=== PATIENT | female | born 1965 | race Caucasian/White ===

== ENCOUNTER 2023-04-21 20:22 | Inpatient (IN) | payer BC, SELFPAY ==
--- OUTSIDE RECORDS SUMMARY | 2023-04-21 20:25 | XMS REPORT | Continuity of Care Document ---
:1965 Author Organization [facility] t Address [address] [place] [address] [place] [id number] Care Team Providers Name Role Phone Estefanía Brito Primary Care Physician [phone] Problems This patient has no known problems. Allergies, Adverse Reactions, Alerts This patient has no known allergies or adverse reactions. Medications Ordered Filled Start Stop Current Ordering Indication Dosage Frequency Signature Comments Components Source Medication Medication Date Date Medication? Clinician (SIG) Name Name TAKE 2021-10 No TABLET BY 2-05 MOUTH ONCE 00:00: DAILY 00 TAKE 1 2021-10 No TABLET BY 1-15 MOUTH ONCE 00:00: DAILY 00 Vital Signs Vital Name Observation Time Observation Value Comments Source BP Diastolic 2022-09-27 14:40:00 84 mm[Hg] Weight Measured 2022-09-27 14:40:00 142.00 pounds Height Measured 2022-09-27 14:40:00 64.00 inches Body Temperature 2022-09-27 14:40:00 98.70 degrees Heart Rate 2022-09-27 14:40:00 93.00 /min Respiratory Rate 2022-09-27 14:40:00 18.00 /min BP Systolic 2022-09-27 14:40:00 154 mm[Hg] BP Systolic 2022-09-13 13:31:00 164 mm[Hg] BP Diastolic 2022-09-13 13:31:00 93 mm[Hg] Weight Measured 2022-09-13 13:31:00 147.80 pounds Height Measured 2022-09-13 13:31:00 64.00 inches Body Temperature 2022-09-13 13:31:00 98.60 degrees Heart Rate 2022-09-13 13:31:00 68.00 /min Respiratory Rate 2022-09-13 13:31:00 18.00 /min Procedures This patient has no known procedures. Plan of Care Planned Activity Planned Date Details Comments Source Goal Plan of Care Note [code = 40421-8] Goal Plan of Care Note [code = 60711-7] Goal Plan of Care Note [code = 46649-0] Goal Plan of Care Note [code = 77710-5] Goal Plan of Care Note [code = 14499-2] Goal Plan of Care Note [code = 20756-2] Encounters Start End Encounter Admission Attending Care Care Encounter Source Date/Time Date/Time Type Type Clinicians Facility Department ID 2023-01-26 2023-01-26 Outpatient SFA SFA Carlos 14:21:47 14:21:47 [id number] [facility] 2022-10-28 2022-10-28 Outpatient SFA SFA Carlos 13:46:48 13:46:48 [id number] [facility] 2022-09-27 2022-09-27 Outpatient SFA SFA Carlos 14:21:07 14:21:07 [id number] [facility] 2022-09-27 2022-09-27 Outpatient [id number] 00:00:00 00:00:00 Visit [id number] Results Test Description Test Time Test Comments Results Result Comments Source COMPREHENSIVE METABOLIC PANEL 2023-01-27 03:49:43 Test Item Value Reference Range Interpretation Comme nts GLUCOSE (test code = 2217) 92 MG/DL 70-99 BUN (test code = 2208) 16 MG/DL 6-20 CREATININE (test code = 0.56 MG/DL 0.60-1.30 L 2213) eGFR (2020 CKD-EPI) (test 106 ML/MIN/1.73 >60 code = 64120) CALC BUN/CREAT (test code = 29 RATIO 6-28 H 2234) SODIUM (test code = 2231) 133 MEQ/L 133-146 POTASSIUM (test code = 4.2 MEQ/L 3.5-5.4 2227) CHLORIDE (test code = 221) 93 MEQ/L 95-107 L CARBON DIOXIDE (test code = 27 MEQ/L 19-31 2205) CALCIUM (test code = 220) 9.8 MG/DL 8.5-10.5 PROTEIN, TOTAL (test code = 7.1 G/DL 6.1-8.3 2228) ALBUMIN (test code = 2201) 4.7 G/DL 3.5-5.2 CALC GLOBULIN (test code = 2.4 G/DL 1.9-3.7 2239) CALC A/G RATIO (test code = 2.0 RATIO 1.0-2.6 2233) BILIRUBIN, TOTAL (test code 0.3 MG/DL See_Comment [Automated message] The = 2206) system which ge nerated this result transmit christi reference range: <=1.2. T he reference range was not u sed to interpret this result as normal/abnormal . ALKALINE PHOSPHATASE (test 135 U/L 40-136 code = 220) AST (test code = 2218) 25 U/L 9-40 ALT (test code = 2219) 19 U/L 5-40 [facility] has important pathology staff changes effective 12/22. New pathology s taff will provide uninter rupted, excellent patie nt care and clinical consul tation. See URL: [email or web address]. UNLESS OTHE RWISE INDICATED, ALL TESTING PERFORMED AT [facility] [address] [place] [address] LABORATOR Y DIRECTOR: JOLYNN ALMEIDA M.D. IA NUMBER [id number] CAP ACCREDITATION N O. [id number] COMPREHENSIVE METABOLIC [id number] 03:29:45 Test Item Value Reference Range Interpretation Comments GLUCOSE (test code = 92 MG/DL 70-99 2216) BUN (test code = 16 MG/DL 6-20 2207) CREATININE (test 0.73 MG/DL 0.60-1.30 code = 2213) eGFR (2020 CKD-EPI) 96 ML/MIN/1.73 >60 (test code = 25399) CALC BUN/CREAT (test 22 RATIO 6-28 code = 223) SODIUM (test code = 131 MEQ/L 133-146 L 2230) POTASSIUM (test code 4.4 MEQ/L 3.5-5.4 = 2228) CHLORIDE (test code 91 MEQ/L 95-107 L = 2215) CARBON DIOXIDE (test 26 MEQ/L 19-31 code = 2206) CALCIUM (test code = 10.3 MG/DL 8.5-10.5 2208) PROTEIN, TOTAL (test 7.2 G/DL 6.1-8.3 code = 2229) ALBUMIN (test code = 4.8 G/DL 3.5-5.2 2200) CALC GLOBULIN (test 2.4 G/DL 1.9-3.7 code = 2240) CALC A/G RATIO (test 2.0 RATIO 1.0-2.6 code = 2234) BILIRUBIN, TOTAL 0.6 MG/DL See_Comment [Automated message] (test code = 220) The syste m which generated this result transmit christi reference range : <=1.2. The refe rence range was not u sed to interpret th is result as normal/abnormal . ALKALINE PHOSPHATASE 113 U/L 40-136 (test code = 220) AST (test code = 25 U/L 9-40 2217) ALT (test code = 15 U/L 5-40 2218) LIPID [id number] 03:29:45 Test Item Value Reference Range Interpretation Comments CHOLESTEROL (test 227 MG/DL <200 H code = 2210) TRIGLYCERIDES (test 55 MG/DL <150 code = 2232) HDL CHOLESTEROL (test 127 MG/DL >39 code = 2220) CALC LDL CHOL (test 86 MG/DL <100 NOTE: C ALCULATED LDL code = 2237) IS BASED ON GORGE-DE SANTIAGO METHOD WHICHINCLUDES ADJUSTABLE TRIGLYCERIDE:VL DL CHOLESTEROL RAT IO.THIS FACTOR VARIES B Y MEASURED TRIGLY CERIDE AND NON-HDLCHOL ESTEROL CONCENTRATIONS WITH INCREASED CALCU LATED LDL SEENIN HIGH ER TRIGLYCERIDE OR LOWER NON-HDL SPECIME NS. FOR MOREINFORMATION , SEE CLIENT ANNOUNCE MENT AT [email or web address] [email or web address] LDL/HDL 0.68 RATIO <3.22 UNLESS O THERWISE (test code = 2238) INDICATED , ALL TESTING PERFORMED [facility], [place]. [address] [place] [address] [facility] DIRECTOR: Jenna PRO NUMBER [id number] [facility] ACCREDITATION N O. [id number] COMPREHENSIVE METABOLIC [id number] 00:00:00 Test Item Value Reference Range Interpretation Comments GLUCOSE (test code = 2217) 92 MG/DL BUN (test code = 2208) 16 MG/DL CREATININE (test code = 2214) 0.73 MG/DL eGFR (2020 CKD-EPI) (test code 96 ML/MIN/1.73 = 45164) CALC BUN/CREAT (test code = 22 RATIO 2235) SODIUM (test code = 2231) 131 MEQ/L POTASSIUM (test code = 2228) 4.4 MEQ/L CHLORIDE (test code = 2215) 91 MEQ/L CARBON DIOXIDE (test code = 26 MEQ/L 2205) CALCIUM (test code = 2209) 10.3 MG/DL PROTEIN, TOTAL (test code = 7.2 G/DL 2228) ALBUMIN (test code = 2201) 4.8 G/DL CALC GLOBULIN (test code = 2.4 G/DL 224) CALC A/G RATIO (test code = 2.0 RATIO 4) BILIRUBIN, TOTAL (test code = 0.6 MG/DL 2206) ALKALINE PHOSPHATASE (test 113 U/L code = 2204) AST (test code = 2218) 25 U/L ALT (test code = 2219) 15 U/L COMPREHENSIVE METABOLIC [id number] 00:00:00 Test Item Value Reference Range Interpretation Comments GLUCOSE (test code = 2217) 92 MG/DL BUN (test code = 2208) 16 MG/DL CREATININE (test code = 2214) 0.73 MG/DL eGFR (2020 CKD-EPI) (test code 96 ML/MIN/1.73 = 74749) CALC BUN/CREAT (test code = 22 RATIO 2235) SODIUM (test code = 2231) 131 MEQ/L POTASSIUM (test code = 2228) 4.4 MEQ/L CHLORIDE (test code = 2215) 91 MEQ/L CARBON DIOXIDE (test code = 26 MEQ/L 220) CALCIUM (test code = 2209) 10.3 MG/DL PROTEIN, TOTAL (test code = 7.2 G/DL 2228) ALBUMIN (test code = 2201) 4.8 G/DL CALC GLOBULIN (test code = 2.4 G/DL 2240) CALC A/G RATIO (test code = 2.0 RATIO 2234) BILIRUBIN, TOTAL (test code = 0.6 MG/DL 2206) ALKALINE PHOSPHATASE (test 113 U/L code = 2204) AST (test code = 2218) 25 U/L ALT (test code = 2219) 15 U/L LIPID [id number] 00:00:00 Test Item Value Reference Range Interpretation Comments CHOLESTEROL (test code = 2210) 227 MG/DL TRIGLYCERIDES (test code = 2232) 55 MG/DL HDL CHOLESTEROL (test code = 2220) 127 MG/DL CALC LDL CHOL (test code = 2237) 86 MG/DL RISK RATIO LDL/HDL (test code = 0.68 RATIO 2238) LIPID [id number] 00:00:00 Test Item Value Reference Range Interpretation Comments CHOLESTEROL (test code = 2210) 227 MG/DL TRIGLYCERIDES (test code = 2232) 55 MG/DL HDL CHOLESTEROL (test code = 2220) 127 MG/DL CALC LDL CHOL (test code = 2237) 86 MG/DL RISK RATIO LDL/HDL (test code = 0.68 RATIO 2238)
[2023-04-21] MEDS ORDERED: NA CHLORIDE 0.9% 1,000 ML ONE ×2 (21:00→21:45)
[2023-04-21 21:03] LABS: Absolute Lymphocytes (CBC) 0.9 K/uL (0.7-4.9); Hematocrit 29.9 % (36.0-45.0); Lymphocytes % 7.1 % (15.3-44.8); MCV 93.7 fL (80-100); MPV 7.7 fL (7.6-11.3); RBC Red Blood Cell Count 3.19 M/uL (3.86-4.86)
--- NOTE | 2023-04-21 21:23 | RAD REPORT ---
EXAM DESCRIPTION: Avi Single View04/21/2023 9:01 pm CLINICAL HISTORY: CHEST PAIN COMPARISON: No comparisons TECHNIQUE: Portable AP view of the chest. FINDINGS: The lungs are clear. No pneumothorax or effusion. The cardiomediastinal contours are unre markable. IMPRESSION: No acute cardiopulmonary process.
[2023-04-21 21:29] LABS: Albumin 3.1 g/dL (3.4-5.0); Bilirubin Total 0.4 mg/dL (0.2-1.0); Magnesium 1.7 mg/dL (1.6-2.4); Protein, Total 6.3 g/dL (6.4-8.2)
[2023-04-21 21:31] LABS: Potassium 2.3 mEq/L (3.5-5.1)
[2023-04-21] MEDS ORDERED: POTASSIUM CL SA 10 MEQ TAB PO ONE (21:45)
--- NOTE | 2023-04-21 22:54 | RAD REPORT ---
EXAM DESCRIPTION: CT - Chest For Pe Angio - 04/21/2023 10:26 pm CLINICAL HISTORY: CHEST PAIN COMPARISON: No comparisons TECHNIQUE: Thin axial CT images of the chest were obtained following administration of 70 mL Isovue 370 IV contrast. Multiplanar reconstructions, and maximum intensity projection reconstructions were g enerated and reviewed. Exam utilizes a protocol for optimal evaluation of pulmonary arterial tree. All CT scans are performed using dose optimization technique as appropriate and may include automated exposure control or mA/KV adjustment according to patient size. FINDINGS: Pulmonary arteries are normal. No emboli or other suspicious finding. No acute or signific ant aorta findings. No mass or infiltrate in the lung parenchyma. No pleural thickening or pleural effusion. No pneumotho rax. No abnormal mediastinal or hilar masses or lymphadenopathy seen. No chest wall mass or abnormal axill iary lymphadenopathy. Evaluation of the upper abdominal structures reveals an ovoid left adrenal mass measuring 3.2 x 2.3 c entimeter in greatest dimensions, demonstrating internal density of less than 10 Hounsfield units. IMPRESSION: No evidence of acute central pulmonary emboli. No other acute pulmonary process. 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
--- NOTE | 2023-04-21 23:13 | EDPHYS ---
Physician Documentation [facility] Name: Dorys Gómez Age: 57 yrs Sex: Female : 1965 Arrival Date: 04/21/2023 Time: 20:22 Bed 13 Private MD: ED Physician Elmer Maguire HPI: 04/21 23:08 This 57 yrs old Female presents to ER via Ambulatory with complaints of High Blood kb Pressure, Chest Pain, General Weakness. 23:08 The patient presents with generalized weakness. Onset: The symptoms/episode kb began/occurred today. Context: occurred at work. Modifying factors: The symptoms are alleviated by nothing, the symptoms are aggravated by nothing. Associated signs and symptoms: Pertinent positives: chest pain. Severity of symptoms: At their worst the symptoms were moderate in the emergency department the symptoms are unchanged. Patient's baseline: Neuro: alert and fully oriented, Motor: no deficits, Ambulation: walks without assistance, Speech: normal. The patient has not experienced similar symptoms in the past. The patient has not recently seen a physician. Pt reports weakness and "feeling off" today. States she thought it was her BP so she took an extra dose of her BP medication at 1730. States she is still feeling weak and like something is wrong. Also reports chest pain, shortness of breath, nausea and one episode of vomiting. Historical: - Allergies: 20:32 No Known Allergies; lg3 - PMHx: 20:32 Hypertensive disorder; lg3 - PSHx: 20:32 hand; Ligation of fallopian tube; lg3 - Immunization history:: Client reports receiving the 2nd dose of the Covid vaccine, Client reports receiving the 2nd dose of the Covid vaccine, pfizer. - Social history:: Smoking status: Patient reports the use of cigarette tobacco products, smokes one-half pack cigarettes per day. ROS: 23:11 Constitutional: Negative for fever, chills, and weight loss. kb 23:11 Cardiovascular: Positive for chest pain. 23:11 Respiratory: Positive for shortness of breath. 23:11 Abdomen/GI: Positive for nausea and vomiting, Negative for abdominal pain. 23:11 Neuro: Positive for weakness. 23:11 All other systems are negative. Exam: 23:11 Constitutional: This is a well developed, well nourished patient who is awake, alert, kb and in no acute distress. Head/Face: Normocephalic, atraumatic. ENT: Moist Mucous membranes Chest/axilla: Normal chest wall appearance and motion. Respiratory: Respirations even and unlabored. No increased work of breathing. Talking in full sentences Abdomen/GI: Soft, non-tender. No distention Skin: Warm, dry with normal turgor. Normal color. MS/ Extremity: Pulses equal, no cyanosis. Neurovascular intact. Full, normal range of motion. Neuro: Awake and alert, GCS 15, oriented to person, place, time, and situation. Moves all extremities. Normal gait. 23:11 Cardiovascular: Rate: normal, Rhythm: regular, Pulses: no pulse deficits are appreciated, Heart sounds: murmur. 23:11 ECG was reviewed by the Attending Physician. Vital Signs: 20:29 BP 94 / 61; Pulse 99; Resp 18 S; Temp 97.9(TE); Pulse Ox 99% on R/A; Weight 64.41 kg lg3 (R); Height 5 ft. 4 in. (R); Pain 7/10; 22:03 BP 111 / 64; Pulse 91; Resp 20; Pulse Ox 100% on R/A; ll3 23:15 BP 134 / 90; Pulse 99; Resp 16; Pulse Ox 99% on R/A; ll3 04/22 01:00 BP 110 / 57; Pulse 99; Resp 19; Pulse Ox 98% on R/A; ll3 04/21 20:29 Body Mass Index 24.37 (64.41 kg, 162.56 cm) lg3 04/21 20:29 Pain Scale: Adult lg3 MDM: 04/21 20:34 Patient medically screened. kb 23:12 Differential diagnosis: cardiac arrhythmia, generalized weakness, TIA, NH. Data kb reviewed: vital signs, nurses notes. Consideration of Admission/Observation Patient was admitted/placed on observation. Management of patient was discussed with the following: Hospitalist: Dr Gibbs accepts pt for admission. Counseling: I had a detailed discussion with the patient and/or guardian regarding: the historical points, exam findings, and any diagnostic results supporting the discharge/admit diagnosis, lab results, radiology results, the need for further work-up and treatment in the hospital. 04/21 20:44 Order name: CBC with Diff; Complete Time: 21:16 kb 04/21 20:44 Order name: D-Dimer; Complete Time: 21:37 kb 04/21 20:44 Order name: Magnesium; Complete Time: 21:33 kb 04/21 20:44 Order name: NT PRO-BNP; Complete Time: 21:33 kb 04/21 20:44 Order name: Troponin HS; Complete Time: 21:33 kb 04/21 20:44 Order name: CMP; Complete Time: 21:33 kb 04/21 23:48 Order name: Urinalysis w/ reflexes EDMS 04/21 23:48 Order name: Comprehensive Metabolic Panel EDMS 04/21 23:48 Order name: Comprehensive Metabolic Panel EDMS 04/21 23:48 Order name: Magnesium EDMS 04/21 23:48 Order name: Magnesium EDMS 04/21 23:48 Order name: Phosphorus EDMS 04/21 23:48 Order name: Phosphorus EDMS 04/21 23:48 Order name: Troponin High Sensitivity EDMS 04/21 23:48 Order name: Troponin High Sensitivity; Complete Time: 00:54 EDMS 04/21 23:48 Order name: Troponin High Sensitivity EDMS 04/21 23:48 Order name: Troponin High Sensitivity EDMS 04/21 20:44 Order name: XRAY Chest (1 view); Complete Time: 21:33 kb 04/21 21:38 Order name: CT Chest For PE Angio; Complete Time: 22:58 kb 04/21 20:44 Order name: EKG; Complete Time: 20:45 kb 04/21 23:48 Order name: Regular EDMS 04/21 20:44 Order name: Cardiac monitoring; Complete Time: 20:49 kb 04/21 20:44 Order name: EKG - Nurse/Tech; Complete Time: 20:49 kb 04/21 20:44 Order name: IV Saline Lock; Complete Time: 20:53 kb 04/21 20:44 Order name: Labs collected and sent; Complete Time: 20:53 kb 04/21 20:44 Order name: O2 Per Protocol; Complete Time: 20:49 kb 04/21 20:44 Order name: O2 Sat Monitoring; Complete Time: 20:49 kb EC:11 Rate is 93 beats/min. Rhythm is regular. QRS [place] is Normal. [place] interval is normal at kb 160 msec. QRS interval is normal at 82 msec. QT interval is prolonged at 514 msec. Administered Medications: 20:53 Drug: NS 0.9% IV 1000 ml Route: IV; Rate: 1000 ml; Site: right antecubital; ll3 21:54 Follow up: Response: No adverse reaction; IV Status: Completed infusion; IV Intake: ll3 1000ml 21:44 Drug: Potassium Chloride PO 40 mEq Route: PO; ll3 22:48 Follow up: Response: No adverse reaction ll3 21:44 Drug: NS 0.9% IV 1000 ml Route: IV; Rate: 1000 ml; Site: right antecubital; ll3 22:48 Follow up: Response: No adverse reaction; IV Status: Completed infusion; IV Intake: ll3 1000ml Disposition: 04/22 00:18 Co-signature as Attending Physician, Elmer Maguire MD I agree with the assessment sp4 and plan of care. I reviewed the patient's care provided by the Advanced Practice Provider and agree with the diagnosis and treatment plan. Disposition Summary: 04/21/23 23:13 Hospitalization Ordered Hospitalization Status: Observation kb Provider: Valentín Gibbs Location: Telemetry/[facility] (observation) kb Condition: Stable kb Problem: new kb Symptoms: are unchanged kb Bed/Room Type: Standard Room Assignment: 404(04/22/23 00:02) rv1 Diagnosis - Hypokalemia kb - Hyponatremia kb - Chest pain, unspecified kb - Weakness kb Forms: - Medication Reconciliation Form kb - SBAR form kb Signatures: Dispatcher [employer] Alicja Huang, ANITA-C CRYPTOLOGIST-Xin Colin, RN RN lg3 Elicia Arias RN RN ll3 Susannah Gallegos rv1 Emler Maguire MD MD sp4 Corrections: (The following items were deleted from the chart) 00:02 04/21 23:13 kb rv1
--- NOTE | 2023-04-21 23:13 | ER ---
Nurse's Notes [facility] Name: Dorys Gómez Age: 57 yrs Sex: Female : 1965 Arrival Date: 04/21/2023 Time: 20:22 Bed 13 Private MD: Diagnosis: Hypokalemia;Hyponatremia;Chest pain, unspecified;Weakness Presentation: 04/21 20:29 Chief complaint: Patient states: "I am having high blood pressure, chest pains, lg3 headache. I took 2 of my blood pressure pills and it's still high". Coronavirus screen: At this time, the client does not indicate any symptoms associated with coronavirus-19. Ebola Screen: No symptoms or risks identified at this time. Initial Sepsis Screen: Does the patient meet any 2 criteria? No. Patient's initial sepsis screen is negative. Does the patient have a suspected source of infection? No. Patient's initial sepsis screen is negative. Risk Assessment: Do you want to hurt yourself or someone else? Patient reports no desire to harm self or others. Onset of symptoms was April 21, 2023. 20:29 Method Of Arrival: Ambulatory lg3 20:29 Acuity: GILES 2 lg3 Triage Assessment: 20:33 General: Appears in no apparent distress. Behavior is calm, cooperative. Pain: lg3 Complains of pain in chest. Cardiovascular: Reports chest pain. Historical: - Allergies: 20:32 No Known Allergies; lg3 - PMHx: 20:32 Hypertensive disorder; lg3 - PSHx: 20:32 hand; Ligation of fallopian tube; lg3 - Immunization history:: Client reports receiving the 2nd dose of the Covid vaccine, Client reports receiving the 2nd dose of the Covid vaccine, pfizer. - Social history:: Smoking status: Patient reports the use of cigarette tobacco products, smokes one-half pack cigarettes per day. Screenin:15 [facility] ED Fall Risk Assessment (Adult) History of falling in the last 3 months, ll3 including since admission No falls in past 3 months (0 pts) Confusion or Disorientation No (0 pts) Intoxicated or Sedated No (0 pts) Impaired Gait No (0 pts) Mobility Assist Device Used No (0 pt) Altered Elimination No (0 pt) Score/Fall Risk Level 0 - 2 = Low Risk Oriented to surroundings, Maintained a safe environment, Educated pt \\T\\ family on fall prevention, incl call for assistance when getting out of bed. Abuse screen: Denies threats or abuse. Denies injuries from another. Nutritional screening: No deficits noted. Tuberculosis screening: No symptoms or risk factors identified. Assessment: 20:45 General: Appears uncomfortable, Behavior is calm, cooperative. Pain: Complains of pain ll3 in chest Pain does not radiate. Pain currently is 0 out of 10 on a pain scale. at worst was 10 out of 10 on a pain scale. Quality of pain is described as sharp, Pain began 1630 Is continuous. Cardiovascular: Reports chest pain, lightheadedness, nausea, palpitations, shortness of breath, Patient's skin is warm and dry. Chest pain is described as vague, quality is sharp. Respiratory: Respiratory effort is even, unlabored, Respiratory pattern is regular, symmetrical. Derm: Skin is pink, warm \\T\\ dry. Vital Signs: 20:29 BP 94 / 61; Pulse 99; Resp 18 S; Temp 97.9(TE); Pulse Ox 99% on R/A; Weight 64.41 kg lg3 (R); Height 5 ft. 4 in. (R); Pain 7/10; 22:03 BP 111 / 64; Pulse 91; Resp 20; Pulse Ox 100% on R/A; ll3 23:15 BP 134 / 90; Pulse 99; Resp 16; Pulse Ox 99% on R/A; ll3 04/22 01:00 BP 110 / 57; Pulse 99; Resp 19; Pulse Ox 98% on R/A; ll3 04/21 20:29 Body Mass Index 24.37 (64.41 kg, 162.56 cm) lg3 04/21 20:29 Pain Scale: Adult lg3 ED Course: 04/21 20:26 Patient arrived in ED. jj6 20:32 Triage completed. lg3 20:33 Arm band placed on. lg3 20:34 Alic[facility] Balderas [facility]C [facility] kb 20:34 Elmer Maguire MD is Attending Physician. kb 20:54 Inserted saline lock: 18 gauge in right antecubital area, using aseptic technique. mb9 21:03 XRAY Chest (1 view) In Process Unspecified. EDMS 21:15 Patient has correct armband on for positive identification. Bed in low position. Call ll3 light in reach. Side rails up X 1. Adult w/ patient. Client placed on continuous cardiac and pulse oximetry monitoring. NIBP monitoring applied. 21:16 Patient maintains SpO2 saturation greater than 95% on room air. ll3 22:28 CT Chest For PE Angio In Process Unspecified. EDMS 23:13 Valentín Gibbs MD is Hospitalizing Provider. kb 04/22 01:00 No provider procedures requiring assistance completed. ll3 01:06 Patient admitted, IV remains in place. ll3 Administered Medications: 04/21 20:53 Drug: NS 0.9% IV 1000 ml Route: IV; Rate: 1000 ml; Site: right antecubital; ll3 21:54 Follow up: Response: No adverse reaction; IV Status: Completed infusion; IV Intake: ll3 1000ml 21:44 Drug: Potassium Chloride PO 40 mEq Route: PO; ll3 22:48 Follow up: Response: No adverse reaction ll3 21:44 Drug: NS 0.9% IV 1000 ml Route: IV; Rate: 1000 ml; Site: right antecubital; ll3 22:48 Follow up: Response: No adverse reaction; IV Status: Completed infusion; IV Intake: ll3 1000ml Medication: 22:42 VIS not applicable for this client. ll3 Intake: 21:54 IV: 1000ml; Total: 1000ml. ll3 22:48 IV: 1000ml; Total: 2000ml. ll3 Outcome: 23:13 Decision to Hospitalize by Provider. kb 04/22 01:06 Admitted to Tele accompanied by tech, via stretcher, room 404, with chart, Report ll3 called to LILIAN Rob Condition: stable Instructed on the need for admit, Demonstrated understanding of instructions. 01:37 Patient left the ED. ll3 Signatures: Dispatcher [employer] EDMS Alicja Balderas, LABEL PRINTER-C LABEL PRINTER-Xin Colin, RN RN lg3 Lupe Tuttle [place], RN RN ll3 Carey Dennis RN RN mb9
[2023-04-21] MEDS ORDERED: ONDANSETRON 4 MG/2 ML VIAL IV PRN (23:42)
[2023-04-21] MEDS ORDERED: NA CHLORIDE 0.9% 1,000 ML IV SCH (23:45)
--- NOTE | 2023-04-21 23:47 | P.HP ---
Certification for Inpatient Patient admitted to: Inpatient Patient will require the following post-hospital care: None Practitioner: I am a practitioner with admitting privileges, knowledge of patient current condition, hospital course, and medical plan of care. Services: Services provided to patient in accordance with Admission requirements found in Title 42 Section 412.3 of the Code of Federal Regulations Patient History Date of Service: 04/22/23 Reason for admission: Chest pain, hyponatremia, hypokalemia, hypochloremia. History of Present Illness: 57-year-old female patient with medical history significant for hypertension was evaluated in the emergency room for episode of feeling lethargic with chest discomfort. She reported that she started feeling chest pain so she decided to take a double dose of hydrochlorothiazide/losartan combination antihypertensive medication. Subsequently she had more worsening symptoms so she decided to come into the ED. In the emergency department labs done revealed severe hyponatremia with a sodium of 120, hypokalemia with a potassium of 2.3, hypochloremia with a chloride of 82 and she was also found to be volume deplete. She was asked to be admitted for inpatient care because of severe electrolyte abnormalities. Allergies No Known Allergies Allergy (Verified 04/22/23 01:53) Home Medications: Losartan/Hydrochlorothiazide [Losartan-Hctz 50-12.5 mg Tab] 1 tab PO DAILY 04/22/23 Review of Systems General: Weakness, Malaise Eyes: Unremarkable ENT: Unremarkable Respiratory: Unremarkable Cardiovascular: Chest Pain Gastrointestinal: Unremarkable Genitourinary: Unremarkable Musculoskeletal: Unremarkable Neurological: Unremarkable Physical Examination - Physical Exam General: Alert, Oriented x3 HEENT: Atraumatic, Normocephalic Neck: Supple Respiratory: Normal air movement Cardiovascular: Regular rate/rhythm, Normal S1 S2 Gastrointestinal: Soft and benign Musculoskeletal: No swelling Neurological: Normal speech, Normal strength at 5/5 x4 extr - Studies Laboratory Data (last 24 hrs) 04/21/23 20:51: Sodium 120 L, Potassium 2.3 L*, BUN 36 H, Creatinine 0.49 L, Glucose 125 H, Magnesium 1.7, Total Bilirubin 0.4, AST 20, ALT 21, Alkaline Phos phatase 94 04/21/23 20:51: WBC 13.10 H, Hgb 10.4 L, Hct 29.9 L, Plt Count 337 Assessment and Plan - Plan Chest pain: Etiology yet to be fully determined however this is perhaps secondary to issues by multiple electrolyte abnormalities. We will trend troponin, obtain echocardiogram and have cardiology evaluate. We will continue aspirin therapy. Hyponatremia: Patient has sodium of 120 deemed secondary to side effect of diuretic as she was on hydrochlorothiazide. IV hydration has been started with normal saline. We will follow trend of serum sodium on daily basis. Hypokalemia: Severely low potassium of 2.3 noted. Repletion has been started. We will follow closely. Etiology is deemed secondary to diuretic wasting. Hypochloremia: Sodium chloride is low at 82. Etiology is not secondary to diuretic question of from use of hydrochlorothiazide. Repletion has been started with normal saline infusion. We will monitor closely. History of hypertension: Presently blood pressure is acceptable. We will monitor vital signs per unit protocol and continue routine antihypertensive medication. Would avoid the use of hydrochlorothiazide at this time secondary to multiple major side effects. Prophylaxis: Lovenox for DVT prophylaxis CODE STATUS: Full code Disposition: Pending work-up of chest pain and repletion of multiple electrolyte abnormalities. - Advance Directives Does patient have a Living Will: No Does patient have a Durable POA for Healthcare: No
[2023-04-22 01:47] VITALS: O2SAT 98
[2023-04-22] MEDS ORDERED: POTASSIUM CL SA 10 MEQ TAB PO ONE ×2 (01:53→05:06)
[2023-04-22 02:05] VITALS: BMI 24.3
[2023-04-22 04:28] LABS: Bilirubin Total 0.4 mg/dL (0.2-1.0); Magnesium 1.8 mg/dL (1.6-2.4); Phosphorus 2.3 mg/dL (2.5-4.9); Potassium 2.8 mEq/L (3.5-5.1); Protein, Total 5.9 g/dL (6.4-8.2)
[2023-04-22] MEDS ORDERED: POTASSIUM PHOS IN 0.9 % NACL 15 MMOL/250 ML BAG IV ONE (04:47)
[2023-04-22] MEDS ORDERED: KCL 20 MEQ/100 mL IVPB 20 MEQ/100 ML BAG IV SCH ×2 (06:00→10:00)
[2023-04-22] MEDS ORDERED: Magnesium Sulfate 2gm IVPB 2 G/50 ML BAG IV ONE (08:34)
--- NOTE | 2023-04-22 08:48 | EKG ---
Test Date: 2023-04-21 Test Time: 20:45:26 [employer] Officer: LL MEASUREMENT RESULTS: Intervals: Rate: 93 OH: 160 QRSD: 82 QT: 414 QTc: 514 [place]: P: 78 OH: 160 QRS: 69 T: 67 INTERPRETIVE STATEMENTS: Normal sinus rhythm ST abnormality, possible digitalis effect Prolonged QT Abnormal ECG No previous ECG available for comparison Electronically Signed On 04-22-23 08:47:31 CDT by Zack Rubin
[2023-04-22] MEDS ORDERED: ENOXAPARIN 40 MG/0.4 ML SQ SCH (09:00)
[2023-04-22] MEDS ORDERED: MAGNESIUM SULFATE 1 gm IVPB 1 GM/100 ML BAG IV ONE (09:00)
[2023-04-22] MEDS ORDERED: FAMOTIDINE 20 MG/2 ML VIAL IV SCH (09:00)
[2023-04-22] MEDS ORDERED: ASPIRIN EC 81 MG TAB PO SCH (09:00)
[2023-04-22 09:04] LABS: Thyroid Stimulating Hormone 1.24 uIU/mL (0.358-3.740); Uric Acid 3.2 mg/dL (2.6-6.0)
[2023-04-22] MEDS: NS KCL 20MEQ 20 MEQ/1,000 ML BAG IV SCH ×2 (09:51→20:18)
[2023-04-22] MEDS: POTASSIUM CL 40 MEQ in NA CHLORIDE 0.9% 500 ML IV SCH ×2 (10:27→16:47)
[2023-04-22 13:19] LABS: Specific Gravity 1.008 (1.005-1.030); Urine Bilirubin NEGATIVE (Negative); Urine Blood Negative (Negative); Urine Clarity Clear (Clear); Urine Color Colorless (Yellow); Urine Glucose NEGATIVE (Negative); Urine Protein NEGATIVE (Negative); Urine Urobilinogen Normal (Normal)
--- NOTE | 2023-04-22 15:07 | P.CNS ---
Date of Consult: 04/22/23 Reason for Consult: Hyponatremia Requesting Physician: gaye myers Chief Complaint: Chest pain, hyponatremia, hypokalemia, hypochloremia. History of Present Illness: 57F w/ PMHx of Htn on Losartan-HCTZ & anxiety disorder, who p/w lethargy, nausea, & chest discomfort found to have hyponatremia w/ serum Na 120. She also had hypokalemia 2.3 & hypochloremia. She reports drinking hard liquor on a regular basis. She denies diarrhea or vomiting. Also found to have upper GI bleed. Allergies No Known Allergies Allergy (Verified 04/22/23 01:53) Home Medications: Losartan/Hydrochlorothiazide [Losartan-Hctz 50-12.5 mg Tab] 1 tab PO DAILY 04/22/23 - Past Medical/Surgical History Diabetic: No -: Hypertension -: Hand , wrist surgery -: tubal ligation - Social History Smoking Status: Current every day smoker Alcohol use: Yes CD- Drugs: No Caffeine use: Yes Place of Residence: Home Review of Systems General: Unremarkable Eyes: Unremarkable ENT: Unremarkable Cardiovascular: Chest Pain Gastrointestinal: Nausea Genitourinary: Unremarkable Musculoskeletal: Unremarkable Neurological: Other (Lethargy) Lymphatics: Unremarkable Physical Examination Temp Pulse Resp BP Pulse Ox 97.7 F 88 18 128/75 94 04/22/23 12:00 04/22/23 12:00 04/22/23 12:00 04/22/23 12:00 04/22/23 12:00 General: In no apparent distress HEENT: Atraumatic, Normocephalic Neck: Supple, JVD not distended Respiratory: Other (Symmetric chest expansion) Cardiovascular: No rubs, No murmurs Gastrointestinal: No rebound, No guarding Musculoskeletal: No clubbing Integumentary: No warmth Neurological: Normal speech, Normal tone Lymphatics: No axilla or inguinal lymphadenopathy External genitalia: Deferred Rectal: Deferred Laboratory Data (last 24 hrs) 04/21/23 20:51: Sodium 120 L, Potassium 2.3 L*, BUN 36 H, Creatinine 0.49 L, Glucose 125 H, Magnesium 1.7, Total Bilirubin 0.4, AST 20, ALT 21, Alkaline Phosphatase 94 04/21/23 20:51: WBC 13.10 H, Hgb 10.4 L, Hct 29.9 L, Plt Count 337 Conclusions/Impression: # Hypotonic, hypo-euvolemic, chronic, symptomatic, mod-severe hyponatremia 2/2 high ADH state from HCTZ/anxiety/pain/nausea + low solute intake/ETOH use Serum Na 120 on adm, increased to 128 in 7 hrs. Na rise is rapid F/u repeat lytes. If hypoNa correction still fast, give D5W +/- DDAVP Dc HCTZ. Avoid thiazides. If anxiety persistent, will need to be on SSRI Tylenol prn Antiemetics prn Advised on improving po solid food intake Long-term serum Na goal > 130 meq/L to prevent imbalance/falls # Upper GI bleed Protonix Monitor CBC For transfer to [facility] for GI eval # Hypokalemia KCl repletion prn # NSTEMI Per Cardiology
--- NOTE | 2023-04-22 15:47 | P.PN ---
Subjective Date of Service: 04/22/23 Chief Complaint: Chest pain, hyponatremia, hypokalemia, hypochloremia. Nursing staff report patient coughed up bright red blood. Patient also reports having black tarry stool prior to admission. Troponin trended up. She denies any chest pain or shortness of breath. She currently has no complaints. Physical Examination - Vital Signs Temperature: 97.7 F Blood Pressure: 128/75 Pulse: 88 Respirations: 18 Pulse Ox (%): 94 - Studies Laboratory Data (last 24 hrs) 04/21/23 20:51: Sodium 120 L, Potassium 2.3 L*, BUN 36 H, Creatinine 0.49 L, Glucose 125 H, Magnesium 1.7, Total Bilirubin 0.4, AST 20, ALT 21, Alkaline Phosphatase 94 04/21/23 20:51: WBC 13.10 H, Hgb 10.4 L, Hct 29.9 L, Plt Count 337 Assessment And Plan - Current Problems (Diagnosis) (1) Upper GI bleed Current Visit: Yes Status: Acute (2) Hyponatremia Current Visit: Yes Status: Acute (3) Hypokalemia Current Visit: Yes Status: Acute (4) NSTEMI (non-ST elevated myocardial infarction) Current Visit: Yes Status: Acute - Plan General: Alert, Oriented x3 HEENT: Atraumatic, Normocephalic Neck: Supple Respiratory: Normal air movement, clear to auscultation Cardiovascular: Regular rate/rhythm, Normal S1 S2 Gastrointestinal: Soft and benign, no tenderness Musculoskeletal: No swelling Neurological: Normal speech, no focal motor deficit. Plan: Continue to replete potassium. Start IV Protonix for GI bleed. Reported history of alcohol abuse and polysubstance. Obtain CT abdomen and pelvis to assess for liver cirrhosis and varices. High risk for anticoagulation. Holding anticoagulation for NSTEMI. Cardiology consulted who recommended stress test. No GI available. Transfer to [facility]. Monitor H&H and transfuse as needed.
[2023-04-22 16:12] LABS: Potassium 4.2 mEq/L (3.5-5.1)
[2023-04-22] MEDS ORDERED: TEMAZEPAM 15 MG CAP PO PRN (18:32)
[2023-04-22 19:55] VITALS: TEMP 98
--- NOTE | 2023-04-22 20:10 | CON ---
Date of Consultation: 04/22/2023 Reason For Consultation: Chest pain. History Of Present Illness: A 57-year-old female, history of hypertension, presented to the emergenc y room with chest pain, left-sided, radiates to her left shoulder along with the shortness of breath, no exertion, and since hospitalization has been chest pain free. No known history of cardiac diseas e. Past Medical History: Hypertension. Medications: Refer to reconciliation sheet for detailed list. Allergies: NO KNOWN DRUG ALLERGIES. Family History: No premature coronary artery disease or cancer. Social History: She is a smoker. Does not drink, use any drugs. Review of Systems: All systems reviewed and they were negative except what mentioned in HPI. Physical Examination: Vital Signs: Reviewed. Head and Neck: Pupils are equal, reactive to light. Intact eye movements. No JVD. No cervical lym phadenopathy. Neck is supple. Thyroid is not enlarged. Lungs: Clear to auscultation bilaterally. No rhonchi, wheezing, or crackles. No accessory muscle u se. Heart: Regular. No extra sounds. Abdomen: Soft, nontender. Bowel sounds positive. No organomegaly. No masses or hernia. No rigidi ty or rebound. Extremities: No clubbing or cyanosis. Intact pulses. Skin: No rash. Neurologic: Alert, awake. No acute focal deficits appreciated. Investigations: BUN 25, creatinine 0.45, and troponins 335. Hemoglobin is 10.4. Assessment And Recommendations: 1.Chest pain with borderline elevated troponin. Ischemia workup is recommended. Obtain exercise nu clear stress test and an echo and plan accordingly. CTA of the lungs was negative for PE. 2.Hypertension. Blood pressure is controlled. Continue home medications. SR/MODL Voice ID: [id number] Report ID: [id number]
[2023-04-23 00:34] VITALS: BP 110/54
--- NOTE | 2023-04-25 06:55 | ECHO ---
HEIGHT: 5 ft 4 in WEIGHT: 142 lb 0 oz DATE OF STUDY: 04/22/[address]: Erick Balderas MD 2-DIMENSIONAL: YES M.MODE: YES DOPPLER: YES COLOR FLOW: YES TDS: YES PORTABLE: YES DEFINITY: BUBBLE STUDY: DIAGNOSIS: NON ST ELEVATION MYOCARDIAL INFARCTION CARDIAC HISTORY: CATHERIZATION: SURGERY: PROSTHETIC VALVE: PACEMAKER: MEASUREMENTS (cm) DIASTOLIC (NORMALS) SYSTOLIC (NORMALS) IVSd 0.9 (0.6-1.2) LA Diam 3.0 (1.9-4.0) LVEF 63% LVIDd 3.2 (3.5-5.7) LVIDs 2.2 (2.0-3.5) %FS 33% LVPWd 1.0 (0.6-1.2) Ao Diam 2.7 (2.0-3.7) 2 DIMENSIONAL ASSESSMENT: RIGHT ATRIUM: NORMAL LEFT ATRIUM: NORMAL RIGHT VENTRICLE: NORMAL LEFT VENTRICLE: NORMAL TRICUSPID VALVE: MILD TRICUSPID REGURGITATION MITRAL VALVE: MILD MITRAL REGURGITATION PULMONIC VALVE: NORMAL AORTIC VALVE: NORMAL PERICARDIAL EFFUSION: NONE AORTIC ROOT: NORMAL LEFT VENTRICULAR WALL MOTION: NORMAL (HYPERDYNAMIC) DOPPLER/COLOR FLOW: MILD MITRAL REGURGITATION/ MILD TRICUSPID REGURGITATION COMMENTS: 1. NORMAL LEFT VENTRICULAR EJECTION FRACTION WITH HYPERDYNAMIC LEFT VENTRICLE AND EJECTION FRACTION IS GREATER THAN 60% 2. MILD MITRAL REGURGITATION 3. MILD TRICUSPID REGURGITATION TECHNOLOGIST: DWAYNE ACOSTA
--- NOTE | 2023-04-25 20:42 | P.DS ---
Admission Date: 04/21/23 Discharge Date: 04/23/23 Disposition: TRANSFER TO [facility] Discharge Condition: FAIR Reason for Admission: Chest pain, hyponatremia, hypokalemia, hypochloremia. - Problems (1) Upper GI bleed Status: Acute (2) Hyponatremia Status: Acute (3) Hypokalemia Status: Acute (4) NSTEMI (non-ST elevated myocardial infarction) Status: Acute Brief History of Present Illness: 57-year-old female patient with medical history significant for hypertension was evaluated in the emergency room for episode of feeling lethargic with chest discomfort. She reported that she started feeling chest pain so she decided to take a double dose of hydrochlorothiazide/losartan combination antihypertensive medication. Subsequently she had more worsening symptoms so she decided to come into the ED. In the emergency department labs done revealed severe hyponatremia with a sodium of 120, hypokalemia with a potassium of 2.3, hypochloremia with a chloride of 82 and she was also found to be volume deplete. She was asked to be admitted for inpatient care because of severe electrolyte abnormalities. Hospital Course: Patient reported having black tarry stool. Nursing staff also report she coughed up bright red blood. She was started on IV Protonix for GI bleed. Reported history of alcohol abuse and polysubstance. She was considered high risk for anticoagulation. Held anticoagulation for NSTEMI. Cardiology consulted who recommended stress test. No GI available. Transfer to [facility] initiated. Patient accepted for transfer. Vitals stable for transfer. Vital Signs/Physical Exam: Temp Pulse Resp BP Pulse Ox 98 F 97 H 17 110/54 L 99 04/23/23 00:00 04/23/23 00:00 04/23/23 00:00 04/23/23 00:00 04/23/23 00:00 Laboratory Data at Discharge: WBC 13.10 thou/uL (4.3-10.9) H 04/21/23 20:51 Hgb 10.4 g/dL (12.0-15.0) L 04/21/23 20:51 Hct 29.9 % (36.0-45.0) L 04/21/23 20:51 Plt Count 337 thou/uL (152-406) 04/21/23 20:51 Sodium Cancelled 04/23/23 05:00 Potassium Cancelled 04/23/23 05:00 BUN Cancelled 04/23/23 05:00 Creatinine Cancelled 04/23/23 05:00 Glucose Cancelled 04/23/23 05:00 Uric Acid 3.2 mg/dL (2.6-6.0) 04/22/23 03:31 Phosphorus Cancelled 04/23/23 05:00 Magnesium Cancelled 04/23/23 05:00 Total Bilirubin 0.4 mg/dL (0.2-1.0) 04/22/23 03:31 AST 19 U/L (15-37) 04/22/23 03:31 ALT 20 U/L (13-56) 04/22/23 03:31 Alkaline Phosphatase 91 U/L (45-117) 04/22/23 03:31 Home Medications: Losartan/Hydrochlorothiazide [Losartan-Hctz 50-12.5 mg Tab] 1 tab PO DAILY 04/22/23
== END 2023-04-23 01:45 | disposition short-term general hospital (02) | DRG 640 ==
LOC: ER 20:22 → 4TH 23:42
PROVIDERS: ADMIT Internal Medicine Nephrology; ATTEND Internal Medicine Nephrology
DX: E87.1 Hypo-osmolality and hyponatremia (principal); I21.4 Non-ST elevation (NSTEMI) myocardial infarction; K92.2 Gastrointestinal hemorrhage, unspecified; E87.6 Hypokalemia; I10 Essential (primary) hypertension; E87.8 Other disorders of electrolyte and fluid balance, not elsewhere classified; F41.9 Anxiety disorder, unspecified; F17.210 Nicotine dependence, cigarettes, uncomplicated; Z98.51 Tubal ligation status; Z79.899 Other long term (current) drug therapy
CPT/HCPCS: 36415; 71045; 71275; 80048; 80053; 81003; 82435; 82533; 83735; 83880; 83935; 84100; 84132; 84300; 84443; 84484; 84550; 85025; 85379; 93005; 93306; 96360; 96361; 99285; J1650; J3475; J3480; J7030; J7040; Q9967